=== PATIENT | female | born 1955 | race Caucasian/White ===

== ENCOUNTER 2021-01-25 15:58 | Emergency (ER) | payer BC ==
[~2021-01-25] VITALS: Ht 162.6 cm; Wt 56.8 kg
[2021-01-25 17:50] LABS: BASOPHILS % (AUTO) 0.6 % (0-1); EOSINOPHILS % (AUTO) 0.1 % (0-6); HEMATOCRIT 46.3 % (35.0-45.0); HEMOGLOBIN 16.2 g/dl (12.0-16.0); LYMPHOCYTES # (AUTO) 1.2 X10'3 (1.1-4.8); MEAN CORPUSCULAR HEMOGLOBIN 30.3 PG (27.0-31.0); MEAN CORPUSCULAR VOLUME 86.6 FL (78-98); MEAN PLATELET VOLUME 9.4 FL (7.4-10.4); MONOCYTES # (AUTO) 0.4 X10'3 (0-0.9); MONOCYTES % (AUTO) 6.5 % (2-12); NEUTROPHILS # (AUTO) 4.8 X10'3 (1.8-7.7); NEUTROPHILS % (AUTO) 74.8 % (42-75); PLATELET COUNT 350 X10'3 (140-440); RED BLOOD COUNT 5.35 X10'6 (4.20-5.60); WHITE BLOOD COUNT 6.5 X10'3 (4.5-11.0)
[2021-01-25 17:52] LABS: ALANINE AMINOTRANSFERASE 22 U/L (12-78); ALBUMIN 5.4 G/DL (3.4-5.0); ALBUMIN/GLOBULIN RATIO 1.5 (1.1-1.5); ALKALINE PHOSPHATASE 107 IU/L (46-116); ANION GAP 10 (8-16); ASPARTATE AMINO TRANSFERASE 18 U/L (10-37); BILIRUBIN,TOTAL 0.9 MG/DL (0.1-1.0); BLOOD UREA NITROGEN 18 MG/DL (7-18); CALCIUM 10.6 MG/DL (8.5-10.1); CHLORIDE 100 MMOL/L (99-107); CREATININE 1.06 MG/DL (0.40-0.90); GLUCOSE 138 MG/DL (70-104); LIPASE 176 U/L (73-393); POTASSIUM 3.8 MMOL/L (3.5-5.1); SODIUM 140 MMOL/L (135-145); TOTAL CARBON DIOXIDE 29.9 MMOL/L (24-32); TOTAL PROTEIN 8.9 G/DL (6.4-8.2); eGFR 52 ML/MIN
[2021-01-25] MEDS ORDERED: normal saline 1000ML IV soln IV ONE (17:55)
[2021-01-25] MEDS ORDERED: morphine 4 MG/ML inj SYRINge IV ONE (18:45)
[2021-01-25] MEDS ORDERED: methylPREDNISolone sod succ 125mg/2ml vial IV ONE (18:45)
[2021-01-25] MEDS ORDERED: LORazepam 2 mg/ml vial IV ONE (18:45)
[2021-01-25] MEDS ORDERED: proCHLORperazine 10 MG/2 ml inj IV ONE (19:40)
[2021-01-25] MEDS ORDERED: PROC25SU31 RC (19:52)
[2021-01-25] MEDS ORDERED: ONDA4TAB6 PO (19:52)
[2021-01-25] MEDS ORDERED: HYDR-3965 PO (19:52)
[2021-01-25] MEDS ORDERED: DICY10CA88 PO (19:52)
[2021-01-25] MEDS ORDERED: ketorolac trometh. 30mg/ml inj. IV ONE (19:55)
[2021-01-25 23:28] VITALS: BP 168/85
== END 2021-01-26 00:03 | disposition home or self-care (01) ==
LOC: ER 15:59
DX: R10.30 Lower abdominal pain, unspecified (principal); R11.2 Nausea with vomiting, unspecified; R19.7 Diarrhea, unspecified; E86.0 Dehydration; I10 Essential (primary) hypertension; E11.9 Type 2 diabetes mellitus without complications; F41.9 Anxiety disorder, unspecified; Z90.710 Acquired absence of both cervix and uterus; Z88.8 Allergy status to other drugs, medicaments and biological substances; Z79.899 Other long term (current) drug therapy
CPT/HCPCS: 36415; 74176; 80053; 83690; 84145; 85025; 93005; 96361; 96374; 96375; 99285; J0780; J1885; J2060; J2270; J2930; J7030

== ENCOUNTER 2021-02-02 02:39 | Emergency (ER) | payer BC ==
[~2021-02-02] VITALS: Ht 162.6 cm; Wt 56.8 kg
[~2021-02-02 02:39] MED LIST: DICY10CA88 PO; HYDR-3965 PO; ONDA4TAB6 PO; PROC25SU31 RC
[2021-02-02] MEDS ORDERED: LORazepam 1 MG tablet PO ONE (02:50)
[2021-02-02] MEDS ORDERED: normal saline 1000ML IV soln IVB ONE (02:50)
[2021-02-02] MEDS ORDERED: LORA-269 PO (02:58)
[2021-02-02 03:11] VITALS: BP 171/132
== END 2021-02-02 03:03 | disposition home or self-care (01) ==
LOC: ER 02:40
DX: F13.20 Sedative, hypnotic or anxiolytic dependence, uncomplicated (principal); I10 Essential (primary) hypertension; E11.9 Type 2 diabetes mellitus without complications; F41.9 Anxiety disorder, unspecified; Z88.5 Allergy status to narcotic agent; Z79.899 Other long term (current) drug therapy
CPT/HCPCS: 99283

== ENCOUNTER 2022-11-14 10:16 | Inpatient (IN) | payer BC, MEDICARE ==
[~2022-11-14] VITALS: Ht 162.6 cm; Wt 160.0 kg
[~2022-11-14 10:16] MED LIST changes: -HYDR-3965 PO; +LORA-269 PO; -PROC25SU31 RC
[2022-11-14 10:56] LABS: BASOPHILS % (AUTO) 0.3 % (0-1); EOSINOPHILS % (AUTO) 0.1 % (0-6); HEMATOCRIT 43.6 % (35.0-45.0); HEMOGLOBIN 14.7 g/dl (12.0-16.0); LYMPHOCYTES # (AUTO) 1.8 X10'3 (1.1-4.8); LYMPHOCYTES % (AUTO) 18.3 % (21-51); MEAN CORPUSCULAR HEMOGLOBIN 29.3 PG (27.0-31.0); MEAN CORPUSCULAR HGB CONC 33.8 g/dL (33.0-36.5); MEAN CORPUSCULAR VOLUME 86.6 FL (78-98); MEAN PLATELET VOLUME 7.9 FL (7.4-10.4); MONOCYTES # (AUTO) 0.6 X10'3 (0-0.9); MONOCYTES % (AUTO) 5.9 % (2-12); NEUTROPHILS # (AUTO) 7.4 X10'3 (1.8-7.7); NEUTROPHILS % (AUTO) 75.4 % (42-75); PLATELET COUNT 249 X10'3 (140-440); RED BLOOD COUNT 5.03 X10'6 (4.20-5.60); RED CELL DISTRIBUTION WIDTH 13.4 % (11.5-14.5); WHITE BLOOD COUNT 9.9 X10'3 (4.5-11.0)
[2022-11-14 11:10] LABS: ALANINE AMINOTRANSFERASE 40 U/L (12-78); ALBUMIN 4.4 G/DL (3.4-5.0); ALBUMIN/GLOBULIN RATIO 1.2 (1.1-1.5); ALKALINE PHOSPHATASE 105 IU/L (46-116); ANION GAP 12 (8-16); ASPARTATE AMINO TRANSFERASE 30 U/L (10-37); BILIRUBIN,TOTAL 0.6 MG/DL (0.1-1.0); BLOOD UREA NITROGEN 20 MG/DL (7-18); BUN/CREATININE RATIO 19.8 (10.0-20.0); CALCIUM 9.3 MG/DL (8.5-10.1); CHLORIDE 104 MMOL/L (99-107); CREATININE 1.01 MG/DL (0.40-0.90); GLUCOSE 127 MG/DL (70-104); LIPASE 69 U/L (73-393); SODIUM 143 MMOL/L (135-145); TOTAL PROTEIN 8.2 G/DL (6.4-8.2); eGFR 55 ML/MIN
[2022-11-14 11:11] LABS: POTASSIUM 2.9 MMOL/L (3.5-5.1)
--- NOTE | 2022-11-14 11:31 | NUR ---
Patient with reported seizure in the lobby. patient brought back to room 19 for evaluation with stable vital signs, NO seizure activity reported and patient purposely hyperventilating. BP; 130/70, 78 NSR, R: 28 and resolved to 16 with calming talk, 99% on room air. Patient placed back in lobby after confirmation of no seizure activity and stable vitals.
[2022-11-14 11:35] LABS: URINE HCG NEGATIVE (NEG)
[2022-11-14 11:39] LABS: CLARITY,URINE CLEAR (Clear); COLOR,URINE YELLOW (Yellow); GLUCOSE, URINE NEGATIVE (Neg); KETONES,URINE TRACE mg/dl (Neg); LEUKOCYTE ESTERASE ,URINE NEGATIVE (Neg); NITRITES, URINE NEGATIVE (Neg); OCCULT BLOOD,URINE TRACE-INTACT (Neg); PH,URINE 6.5 (4.8-8.0); PROTEIN,URINE TRACE mg/dl (Neg)
[2022-11-14 11:49] LABS: UA COLLECTION TYPE CLN CATCH MIDSTREAM
[2022-11-14 11:51] LABS: SQUAMOUS EPITHELIAL CELL,UR MODERATE /LPF (FEW)
[2022-11-14 11:52] LABS: RBC,URINE 0-2 /HPF (0-2); WBC,URINE 0-4 /HPF (0-4)
[2022-11-14 11:53] LABS: MUCUS STRANDS FEW /LPF (Neg)
[2022-11-14 11:54] LABS: BACTERIA,URINE FEW /HPF (Neg); TRANSITIONAL EPI CELLS,URINE FEW /HPF
[2022-11-14] MEDS ORDERED: morphine 4 MG/ML inj SYRINge IV ONE (12:40)
[2022-11-14] MEDS ORDERED: normal saline 1000ML IV soln IVB ONE (12:40)
[2022-11-14] MEDS ORDERED: ondansetron/PF 4mg/2ml inj IV ONE ×3 (12:40→16:20)
[2022-11-14] MEDS ORDERED: iohexol 300mg/ml 100ml inj. ONE (12:43)
[2022-11-14] MEDS ORDERED: potassium Cl 20mEq/100mL bag 100 ML IV SCH (13:25)
[2022-11-14] MEDS ORDERED: Potassium Cl 40 MEQ in sodium chloride 0.45% 500 ML IV ONE (13:40)
[2022-11-14] MEDS ORDERED: HYDROmorphone 1 mg/ml syringe IV ONE ×2 (13:50→16:20)
[2022-11-14] MEDS ORDERED: ONDA8TAB13 PO ×5 (13:52→21:01)
[2022-11-14] MEDS ORDERED: DRON10CA8 PO (14:11)
[2022-11-14] MEDS ORDERED: DRON2.5C18 PO ×2 (14:29)
[2022-11-14] MEDS ORDERED: metoclopramide 5 mg/ml inj IV ONE (14:30)
[2022-11-14] MEDS ORDERED: haloperidol lactate 5mg/ml inj IVH ONE (18:10)
[2022-11-14] MEDS ORDERED: LEVO25TA2 PO (20:24)
[2022-11-14] MEDS ORDERED: GABA300C PO (20:24)
[2022-11-14] MEDS ORDERED: LOSA100T58 PO (20:24)
[2022-11-14] MEDS ORDERED: CARV6.253 PO (20:24)
[2022-11-14] MEDS ORDERED: OXYC1TAB17 PO (20:24)
[2022-11-14] MEDS ORDERED: ATOR40TA72 PO (20:24)
[2022-11-14] MEDS ORDERED: fentaNYL/PF 50MCG/1 ML 2ML syringe IV ONE (21:25)
[2022-11-14] MEDS ORDERED: HYDROmorphone/PF 0.2 MG/ML SYRINGE IV PRN (21:55)
[2022-11-14] MEDS ORDERED: magnesium Cl slow-release 64mg tablet PO PRN ×2 (21:55)
[2022-11-14] MEDS ORDERED: magnesium 4gm in 100ml NS 100 ML IV PRN (21:55)
[2022-11-14] MEDS ORDERED: magnesium 2GM in 50ml NS 50 ML IV PRN (21:55)
[2022-11-14] MEDS ORDERED: potassium Cl 40MEQ/1/2NS 520ml 520 ML IV PRN (21:55)
[2022-11-14] MEDS ORDERED: potassium Cl 20 mEq SR tablet PO PRN (21:55)
[2022-11-14] MEDS: normal saline 1000ml 1,000 ML IV SCH ×2 (22:24→22:27)
[2022-11-14] MEDS: ondansetron/PF 4mg/2ml inj IV PRN (22:30)
[2022-11-14 23:20] VITALS: BP 154/57; PULSE 63; RESP 16; TEMP 98.4; O2SAT 98
[2022-11-14] MEDS: HYDROmorphone inj. 0.5 MG/0.5 ML DISP.SYRIN IV PRN (23:33)
[2022-11-15 00:08] VITALS: RESP 16; O2SAT 98
--- NOTE | 2022-11-15 01:43 | NUR ---
PAGER ID: [phone] MESSAGE: Roxane Fernandez [id number], n/vMalia Aguilera ineffective allergy to Reglan any suggestions? Ativan?Compazine? Jessy [email or web address] Addendum: 11/15/22 at 0143 by Jessy Argueta RN Amended: Links added.
[2022-11-15] MEDS ORDERED: proCHLORperazine 10 MG/2 ml inj IV ONE (02:20)
[2022-11-15] MEDS ORDERED: NORMAL SALINE IV ONE (02:30)
[2022-11-15] MEDS ORDERED: PROMETHAZINE IV ONE (02:30)
[2022-11-15] MEDS: HYDROmorphone inj. 0.5 MG/0.5 ML DISP.SYRIN IV PRN ×3 (05:51→17:26)
[2022-11-15 06:00] VITALS: BP 163/67; PULSE 64; RESP 16; TEMP 98.6; O2SAT 97
--- NOTE | 2022-11-15 06:16 | NUR ---
Problems reprioritized. Patient report given, questions answered & plan of care reviewed with Felicita DHILLON. Addendum: 11/15/22 at 0616 by Jessy Argueta RN Amended: Links added.
[2022-11-15] MEDS: ondansetron/PF 4mg/2ml inj IV PRN ×3 (06:28→19:08)
--- NOTE | 2022-11-15 06:32 | NUR ---
Patient in room [facility] 4020. I have received report from Jessy DHILLON and had the opportunity to ask questions and assume patient care.
[2022-11-15 06:44] LABS: ALBUMIN 3.2 G/DL (3.4-5.0); ANION GAP 12 (8-16); BASOPHILS % (AUTO) 0.3 % (0-1); BLOOD UREA NITROGEN 15 MG/DL (7-18); CALCIUM 8.1 MG/DL (8.5-10.1); CHLORIDE 110 MMOL/L (99-107); CREATININE 0.75 MG/DL (0.40-0.90); EOSINOPHILS % (AUTO) 0.4 % (0-6); GLUCOSE 102 MG/DL (70-104); LYMPHOCYTES # (AUTO) 1.8 X10'3 (1.1-4.8); LYMPHOCYTES % (AUTO) 24.5 % (21-51); MAGNESIUM 1.4 MG/DL (1.5-2.4); MEAN CORPUSCULAR HEMOGLOBIN 29.7 PG (27.0-31.0); MEAN CORPUSCULAR HGB CONC 34.2 g/dL (33.0-36.5); MEAN CORPUSCULAR VOLUME 86.9 FL (78-98); MEAN PLATELET VOLUME 8.9 FL (7.4-10.4); MONOCYTES # (AUTO) 0.6 X10'3 (0-0.9); MONOCYTES % (AUTO) 7.9 % (2-12); NEUTROPHILS % (AUTO) 66.9 % (42-75); PLATELET COUNT 184 X10'3 (140-440); POTASSIUM 3.2 MMOL/L (3.5-5.1); RED BLOOD COUNT 4.03 X10'6 (4.20-5.60); RED CELL DISTRIBUTION WIDTH 13.3 % (11.5-14.5); SODIUM 145 MMOL/L (135-145); TOTAL CARBON DIOXIDE 22.6 MMOL/L (24-32); WHITE BLOOD COUNT 7.5 X10'3 (4.5-11.0); eGFR 78 ML/MIN
[2022-11-15] MEDS ORDERED: metoclopramide 5 mg/ml inj IV ONE (07:05)
[2022-11-15 07:16] LABS: HEMOGLOBIN A1C 5.7 % (4.5-6.2)
[2022-11-15] MEDS ORDERED: ondansetron 4mg rapidly disintigrating tab PO PRN (07:25)
[2022-11-15] MEDS: carvedilol 6.25mg tablet PO SCH ×3 (07:30→19:16)
[2022-11-15] MEDS: levoTHYROXINE 25mcg tablet PO SCH (07:30)
[2022-11-15] MEDS: proCHLORperazine 10 MG/2 ml inj IV PRN ×3 (07:53→21:30)
[2022-11-15 08:00] VITALS: RESP 16; O2SAT 97
[2022-11-15] MEDS: losartan 50mg tablet PO SCH (08:00)
[2022-11-15] MEDS: gabapentin 300mg capsule PO SCH ×3 (08:00→20:00)
[2022-11-15] MEDS: atorvastatin 20mg tablet PO SCH (08:00)
[2022-11-15] MEDS: K and/or MAG REPLACEMENT MC SCH ×2 (08:00→20:00)
[2022-11-15] MEDS: normal saline 1000ml 1,000 ML IV SCH ×2 (08:27→17:43)
--- NOTE | 2022-11-15 09:36 | NUR ---
Nutrition Consult "vomiting or retching w/ abdominal pain": Pt admit DX chronic UC w/ relapse, hypokalemia, and hypothyroidism per EMR. Pt currently NPO continues to be quite nauseous but pleasant open to conversation this AM per RN. Pt seen by RD at bedside for fiber restricted diet ed w/ RD contact information provided. Pt politely declines verbal ed reports has had diet ed in past; RD encouraged pt to contact dietitian's office if nutrition questions/concerns. Addendum: 11/15/22 at [address] Amended: Links added.
[2022-11-15] MEDS ORDERED: Potassium Cl 40 MEQ in sodium chloride 0.45% 500 ML IV ONE (09:40)
[2022-11-15 10:00] VITALS: BP 164/70; PULSE 62; RESP 16; TEMP 98.4; O2SAT 97
--- NOTE | 2022-11-15 10:00 | NUR ---
i have reviewed orient rn physical assessment and agree with documented assessment
--- NOTE | 2022-11-15 17:06 | NUR ---
PAGER ID: [phone] MESSAGE: CATHERINE DHILLON [id number] RE: Navid GOLDBERG [id number]. PT VERY ANXIOUS, REQUESTING ATIVAN. THANK YOU
[2022-11-15] MEDS ORDERED: LORazepam 2 mg/ml vial IV ONE (17:10)
[2022-11-15 18:00] VITALS: BP 176/68; PULSE 66; RESP 16; TEMP 98.4; O2SAT 96
--- NOTE | 2022-11-15 18:15 | NUR ---
Problems reprioritized. Patient report given, questions answered & plan of care reviewed with Marilee boucher.
[2022-11-15 22:00] VITALS: BP 158/64; PULSE 69; RESP 18; TEMP 97.6; O2SAT 95
[2022-11-16] VITALS (7 sets, daily range): BP systolic 120–177; BP diastolic 67–77; PULSE 65–77; RESP 14–18; TEMP 98–98.3; O2SAT 93–97
[2022-11-16] MEDS: HYDROmorphone inj. 0.5 MG/0.5 ML DISP.SYRIN IV PRN (00:31)
[2022-11-16] MEDS: ondansetron/PF 4mg/2ml inj IV PRN ×2 (03:33→13:05)
--- NOTE | 2022-11-16 05:59 | NUR ---
pt still reports nausea, receiving IV zofran and compazine from RN throughout the shift and IV dilaudid for pain. pt requesting ativan "because it helps my stomach feel better. the percocet i take at home eats my stomach up"
[2022-11-16 06:24] LABS: BASOPHILS % (AUTO) 0.5 % (0-1); EOSINOPHILS # (AUTO) 0.1 X10'3 (0-0.9); EOSINOPHILS % (AUTO) 1.1 % (0-6); HEMATOCRIT 38.5 % (35.0-45.0); HEMOGLOBIN 13.3 g/dl (12.0-16.0); LYMPHOCYTES # (AUTO) 1.5 X10'3 (1.1-4.8); LYMPHOCYTES % (AUTO) 17.9 % (21-51); MEAN CORPUSCULAR HEMOGLOBIN 29.7 PG (27.0-31.0); MEAN CORPUSCULAR HGB CONC 34.7 g/dL (33.0-36.5); MEAN CORPUSCULAR VOLUME 85.8 FL (78-98); MEAN PLATELET VOLUME 8.3 FL (7.4-10.4); MONOCYTES # (AUTO) 0.7 X10'3 (0-0.9); NEUTROPHILS % (AUTO) 72.5 % (42-75); PLATELET COUNT 200 X10'3 (140-440); RED BLOOD COUNT 4.48 X10'6 (4.20-5.60); RED CELL DISTRIBUTION WIDTH 12.9 % (11.5-14.5); WHITE BLOOD COUNT 8.3 X10'3 (4.5-11.0)
[2022-11-16 06:28] LABS: ALBUMIN 3.4 G/DL (3.4-5.0); ANION GAP 12 (8-16); BLOOD UREA NITROGEN 9 MG/DL (7-18); BUN/CREATININE RATIO 12.3 (10.0-20.0); CALCIUM 7.7 MG/DL (8.5-10.1); CHLORIDE 108 MMOL/L (99-107); CREATININE 0.73 MG/DL (0.40-0.90); GLUCOSE 113 MG/DL (70-104); MAGNESIUM 2.4 MG/DL (1.5-2.4); SODIUM 141 MMOL/L (135-145); TOTAL CARBON DIOXIDE 20.8 MMOL/L (24-32); eGFR 80 ML/MIN
[2022-11-16 06:30] LABS: POTASSIUM 2.6 MMOL/L (3.5-5.1)
[2022-11-16] MEDS ORDERED: hydrALAZINE 20mg/ml inj. IV PRN (07:15)
[2022-11-16] MEDS: proCHLORperazine 10 MG/2 ml inj IV PRN ×2 (07:46→15:45)
[2022-11-16] MEDS: gabapentin 300mg capsule PO SCH ×2 (07:51→19:07)
[2022-11-16] MEDS: carvedilol 6.25mg tablet PO SCH ×2 (07:51→16:49)
[2022-11-16] MEDS: levoTHYROXINE 25mcg tablet PO SCH (07:51)
[2022-11-16] MEDS: atorvastatin 20mg tablet PO SCH (07:51)
[2022-11-16] MEDS: losartan 50mg tablet PO SCH (07:51)
[2022-11-16] MEDS: potassium Cl 20 mEq SR tablet PO PRN ×3 (07:53→19:08)
[2022-11-16] MEDS: normal saline 1000ml 1,000 ML IV SCH ×2 (07:59→16:31)
--- NOTE | 2022-11-16 08:28 | NUR ---
PAGER ID: [phone] MESSAGE: evans boucher [id number] re: Navid Carlton [id number]. critical K 2.6, will replace per pro
[2022-11-16] MEDS: K and/or MAG REPLACEMENT MC SCH ×2 (08:31→20:00)
[2022-11-16] MEDS ORDERED: oxyCODONE IR 5mg (immed. release) tablet PO PRN (10:00)
[2022-11-16] MEDS ORDERED: potassium Cl 40MEQ/1/2NS 520ml 520 ML IV ONE (10:10)
[2022-11-16] MEDS: oxyCODONE IR 5mg (immed. release) tablet PO PRN ×2 (10:48→21:53)
--- NOTE | 2022-11-16 15:25 | NUR ---
medication did not save. hydralazine administered per md order, medication rights reviewed with pt
[2022-11-16] MEDS ORDERED: cloNIDine 0.1 mg tablet PO PRN (16:40)
[2022-11-16] MEDS ORDERED: LORazepam 1 MG tablet PO ONE (16:40)
[2022-11-17] MEDS: proCHLORperazine 10 MG/2 ml inj IV PRN ×2 (03:02→10:37)
[2022-11-17] MEDS: oxyCODONE IR 5mg (immed. release) tablet PO PRN (03:43)
[2022-11-17 06:00] VITALS: BP 128/63; PULSE 70; RESP 17; TEMP 97.5; O2SAT 94
--- NOTE | 2022-11-17 06:03 | NUR ---
Problems reprioritized. Patient report given, questions answered & plan of care reviewed with . Addendum: 11/17/22 at 0604 by Jessy Argueta RN Amended: Links added.
[2022-11-17 06:34] LABS: BASOPHILS % (AUTO) 0.6 % (0-1); EOSINOPHILS # (AUTO) 0.2 X10'3 (0-0.9); EOSINOPHILS % (AUTO) 2.8 % (0-6); HEMATOCRIT 37.9 % (35.0-45.0); HEMOGLOBIN 12.8 g/dl (12.0-16.0); LYMPHOCYTES # (AUTO) 1.7 X10'3 (1.1-4.8); LYMPHOCYTES % (AUTO) 23.8 % (21-51); MEAN CORPUSCULAR HEMOGLOBIN 29.3 PG (27.0-31.0); MEAN CORPUSCULAR HGB CONC 33.9 g/dL (33.0-36.5); MEAN CORPUSCULAR VOLUME 86.6 FL (78-98); MEAN PLATELET VOLUME 8.4 FL (7.4-10.4); MONOCYTES # (AUTO) 0.7 X10'3 (0-0.9); MONOCYTES % (AUTO) 8.9 % (2-12); NEUTROPHILS # (AUTO) 4.7 X10'3 (1.8-7.7); NEUTROPHILS % (AUTO) 63.9 % (42-75); PLATELET COUNT 216 X10'3 (140-440); RED BLOOD COUNT 4.38 X10'6 (4.20-5.60); RED CELL DISTRIBUTION WIDTH 13.8 % (11.5-14.5); WHITE BLOOD COUNT 7.4 X10'3 (4.5-11.0)
[2022-11-17 06:37] LABS: ANION GAP 11 (8-16); BLOOD UREA NITROGEN 7 MG/DL (7-18); BUN/CREATININE RATIO 8.6 (10.0-20.0); CALCIUM 7.6 MG/DL (8.5-10.1); CHLORIDE 112 MMOL/L (99-107); CREATININE 0.81 MG/DL (0.40-0.90); GLUCOSE 108 MG/DL (70-104); MAGNESIUM 1.6 MG/DL (1.5-2.4); POTASSIUM 3.6 MMOL/L (3.5-5.1); SODIUM 142 MMOL/L (135-145); TOTAL CARBON DIOXIDE 18.7 MMOL/L (24-32); eGFR 71 ML/MIN
[2022-11-17] MEDS: gabapentin 300mg capsule PO SCH (07:40)
[2022-11-17] MEDS: losartan 50mg tablet PO SCH (07:40)
[2022-11-17] MEDS: carvedilol 6.25mg tablet PO SCH (07:40)
[2022-11-17] MEDS: atorvastatin 20mg tablet PO SCH (07:40)
[2022-11-17] MEDS: ondansetron/PF 4mg/2ml inj IV PRN (07:41)
[2022-11-17] MEDS: levoTHYROXINE 25mcg tablet PO SCH (07:41)
[2022-11-17 08:00] VITALS: RESP 17; O2SAT 94
[2022-11-17] MEDS: K and/or MAG REPLACEMENT MC SCH (08:00)
[2022-11-17] MEDS ORDERED: cholecalciferol (vitamin D3) 1,000 unit (25mcg) tablet PO SCH (08:00)
[2022-11-17] MEDS: calcium carbonate 500mg tablet PO SCH ×2 (08:05→12:15)
[2022-11-17 10:00] VITALS: BP 126/70; PULSE 85; RESP 16; TEMP 97.6; O2SAT 93
[2022-11-17] MEDS: normal saline 1000ml 1,000 ML IV SCH (10:31)
[2022-11-17] MEDS ORDERED: OXYC1TAB17 PO (12:53)
[2022-11-17] MEDS ORDERED: ONDA8TAB13 PO (12:53)
--- NOTE | 2022-11-17 14:07 | NUR ---
PATIENT DISCHARGED IN STABLE CONDITION TO HOME WITH . IV REMOVED TIP INTACT NO COMPLICATIONS. BELONGINGS SENT WITH PT. PT EDUCATED ON DISCHARGE INSTRUCTIONS/FOLLOW UP.
== END 2022-11-17 13:55 | disposition home or self-care (01) | DRG 392 ==
LOC: ER 10:17 → ED HOLD 21:57 → ORTHO 4S 23:14
PROVIDERS: ADMIT Internal Medicine; ATTEND Internal Medicine
PROC: BW211ZZ Computerized Tomography (CT Scan) of Abdomen and Pelvis using Low Osmolar Contrast (ICD-10-PCS; principal; 2022-11-14)
DX: K57.92 Diverticulitis of intestine, part unspecified, without perforation or abscess without bleeding (principal); K51.90 Ulcerative colitis, unspecified, without complications; F13.20 Sedative, hypnotic or anxiolytic dependence, uncomplicated; E03.9 Hypothyroidism, unspecified; E11.9 Type 2 diabetes mellitus without complications; G89.29 Other chronic pain; E78.5 Hyperlipidemia, unspecified; T39.395A Adverse effect of other nonsteroidal anti-inflammatory drugs [NSAID], initial encounter; E86.0 Dehydration; A08.4 Viral intestinal infection, unspecified; E83.42 Hypomagnesemia; E87.6 Hypokalemia; F41.9 Anxiety disorder, unspecified; I10 Essential (primary) hypertension; Z90.710 Acquired absence of both cervix and uterus; Z88.8 Allergy status to other drugs, medicaments and biological substances; Z79.899 Other long term (current) drug therapy; Y92.89 Other specified places as the place of occurrence of the external cause
CPT/HCPCS: 36415; 74177; 80048; 80053; 81001; 81025; 83036; 83690; 83735; 84132; 84145; 84443; 85025; 85651; 87045; 87046; 87081; 89055; 97116; 97161; 97530; 99285; G0378; J0360; J0780; J1170; J1630; J2060; J2270; J2405; J3010; J3475; J3480; J3490; J7030; Q9967